=== PATIENT | male | born 1985 | race Caucasian/White ===

== ENCOUNTER 2018-04-14 19:28 | Emergency (ER) | payer SELFPAY ==
--- NOTE | 2018-04-14 21:44 | RADIOLOGY REPORT (SQ) ---
EXAM DESCRIPTION: XR CHEST 2 VIEWS COMPLETED DATE/TME: 04/14/2018 20:43 CLINICAL HISTORY: 32 years, Male, cough x3 weeks COMPARISON: X-ray chest 10/14/2015 NUMBER OF VIEWS: TECHNIQUE: LIMITATIONS: None. FINDINGS: No evidence of pulmonary infiltrate or pleural effusion. The heart and mediastinum are unremarkable. Pulmonary vascularity appears normal. There is a right-sided AICD. IMPRESSION: No acute finding. copyright 2010 [employer]- All Rights Reserved
[2018-04-14] MEDS ORDERED: GUAIFENESIN 600 MG TABLET.SA PO ONE (23:00)
[2018-04-14] MEDS ORDERED: SULFAMETHOXAZOLE/TRIMETHOPRIM 800-160 MG TABLET PO ONE (23:01)
[2018-04-14] MEDS ORDERED: CEPHALEXIN 500 MG CAPSULE PO ONE (23:01)
--- NOTE | 2018-04-14 23:05 | ER Document Report ---
HPI - HPI Time Seen by Provider: 04/14/18 20:20 Pain Level: 4 Notes: Patient is a 32-year-old male who presents with multiple complaints today. Patient reports productive cough ongoing for at least 3 weeks now. Patient also reports possible abscess to his left axilla. Patient has never had an abscess in the past and is very nervous about the thought of having it opened. Patient denies any fevers. Patient reports past medical history of HIV, CHF and myocardial infarction. - RESPIRATORY Respiratory: REPORTS: Coughing - 3 1/2 wks - REPRODUCTIVE Reproductive: DENIES: : Past Medical History - General Information source: Patient - Social History Smoking Status: Current Every Day Smoker Chew tobacco use (# tins/day): No Frequency of alcohol use: None Drug Abuse: None Family History: Reviewed & Not Pertinent Patient has suicidal ideation: No Patient has homicidal ideation: No - Past Medical History Cardiac Medical History: Reports: Hx Congestive Heart Failure, Hx Heart Attack - August 2012, Hx Hypertension Pulmonary Medical History: Reports: Hx COPD Renal/ Medical History: Denies: Hx Peritoneal Dialysis Psychiatric Medical History: Reports: Hx Bipolar Disorder Infectious Medical History: Reports: Hx HIV Past Surgical History: Reports: Hx Cardiac Catheterization - August 2012 w/stent, Hx Cardiac Surgery - stent, Hx Coronary Stent, Hx Internal Defibrillator - Immunizations Hx Diphtheria, Pertussis, Tetanus Vaccination: Yes Vertical Provider Document - CONSTITUTIONAL Notes: PHYSICAL EXAMINATION: GENERAL: Well-appearing, well-nourished and in no acute distress. HEAD: Atraumatic, normocephalic. EYES: Pupils equal round extraocular movements intact, conjunctiva are normal. ENT: Nares patent NECK: Normal range of motion LUNGS: No respiratory distress, bronchospasm with deep breaths. Musculoskeletal: Normal range of motion NEUROLOGICAL: Normal speech, normal gait. PSYCH: Normal mood, normal affect. SKIN: Warm, Dry, normal turgor, no rashes or lesions noted. Area of induration with fluctuance under patient's left axilla, tender with palpation. - INFECTION CONTROL TRAVEL OUTSIDE OF THE [place] IN LAST 30 DAYS: No Course - Re-evaluation Re-evalutation: Abscess was incised and drained, see procedure note. Patient tolerated well. Large amount of purulent drainage obtained. A chest x-ray was performed as patient has had a history of cough over the last 3 weeks and has a history of both HIV and CHF. Chest x-ray was clear with no acute findings today. Patient instructed to take grzm-[id number] cough medicine. Patient's vital signs remained stable and will be discharged home in stable condition. - Vital Signs Vital signs: Temp Pulse Resp BP Pulse Ox 98.7 F 108 H 18 137/98 H 96 04/14/18 19:45 04/14/18 19:45 04/14/18 19:45 04/14/18 19:45 04/14/18 19:45 Procedures - Incision and Drainage Left axilla Type: Simple Anesthetic type: 1% Lidocaine Blade size: 11 I&D procedure: Betadine prep applied, Shurclens applied Incision Method: Incision made by scalpel Discharge - Discharge Clinical Impression: Abscess, Cough Condition: Stable Disposition: HOME, SELF-CARE Additional Instructions: ABSCESS: You have an abscess (boil). This a pus-forming infection, usually due to staph. Some boils may be left to drain on their own, but most require lancing. From the time the tender lump first appears, it may be three or four days before the abscess is ready to donnell. Local heat and rest help at this stage of treatment. An antibiotic may prevent spread of the infection. Once the abscess is opened, packing may be placed into it. This is done so pus is not sealed inside by premature closure of the cavity. The packing will be removed at your follow-up visit or you may be advised to remove it yourself at home. Sometimes this packing must be replaced a few times during healing. The wound will heal with surprisingly little scar. Depending on the size and location of an abscess, healing can take one to four weeks. You may shower and wash the area around the incision site two or three times a day. Antibiotics may be prescribed, but are usually not necessary after an abscess has been drained. If you develop fever, chills, worsening pain, or increasing swelling in the area, call the doctor or return immediately. POST INCISION AND DRAINAGE: You have had an incision made to allow drainage of an abscess. The incision must remain open so that pus and debris can drain from the wound. If the abscess cavity is large, packing is placed. This keeps the tissues from collapsing and trapping pus inside, while the body shrinks the cavity. The packing may need to be replaced every day or two. The physician will instruct you on the packing. Keep a bulky dressing over the area. Replace it if it becomes saturated with blood or pus. Do not disturb the packing (if present). You may shower and cleanse the area with gentle soap and warm water two or three times a day. Local warmth may be soothing, and may promote faster healing. Return if you develop high fever or chills, or if you note spreading redness, increasing swelling, or increasing tenderness. MRSA CELLULITIS: You have an infection of your skin and underlying soft tissues called cellulitis. This is due to bacteria, which can enter through any break in the skin, or even through an irritated hair follicle. Untreated, cellulitis will usually worsen and may form an abscess which requires draining. Although many bacterial organisms can cause cellulitis and abscess formati ons, the most likely bacteria is Methicillin-Resistant Staph Aureus, or MRSA for short. Antibiotics are required. Usually, warm packs or warm soaks, and elevation of the infected area are recommended. You should start getting better within 24 to 36 hours. Most infections respond quickly to the right medication. Follow-up care is important, however, to check for abscess (boil) formation, unsuspected foreign body, or resistant infection. If you develop fever, chills, or if the area of infection is becoming rapidly more swollen or painful, call the doctor at once. CEPHALEXIN: The antibiotic you've been prescribed is a member of the cephalosporin class. This type of antibiotic covers a wide variety of infections, including those of the skin, lungs, and urinary tract. It's useful for staph infections. This antibiotic is slightly similar to the penicillin family. In rare cases, a person who is allergic to penicillin will also be allergic to this medication. If you have had a severe allergic reaction to penicillin, and have not taken this antibiotic since that time, notify your doctor. Antibiotics which cover many germs ("broad spectrum" antibiotics) are more likely to cause diarrhea or "yeast" infections. Women prone to vaginal yeast problems may suffer an attack after taking this antibiotic. In infants, oral thrush (white spots "stuck" on the cheek) or yeast diaper rash may result. See your doctor if these problems occur. Call at once if you develop itching, hives, shortness of breath, or lightheadedness. TRIMETHOPRIM-SULFA: You have been given a prescription for trimethoprim-sulfa (TMS, Septra, Bactrim). This is a combination antibiotic of the sulfa class, often used for urinary tract infections, middle ear infections, bronchitis, shigella intestinal infection, and Pneumocystis pneumonia. TMS is usually well-tolerated. Occasional side effects include nausea and decreased appetite. Septra is not recommended for infants less than two months of age. Do not take this medication if you have experienced severe side effects or allergy to sulfa medicine. You should stop this medicine at once and contact your physician if you develop any rash, joint pain, shortness of breath, bruising, or jaundice (yellow color in the skin), or if you develop any other new or unusual symptoms. FOLLOW-UP CARE: Most simple abscesses will not require a follow up visit. If you had packing placed in the abscess, remove it as instructed by the physician. If you have been referred to a physician for follow-up care, call the physicians office for an appointment as you were instructed or within the next two days. If you experience worsening or a significant change in your symptoms, return to the Emergency Department at any time for re-evaluation. Prescriptions: Benzonatate [Tessalon Perles 100 mg Capsule] 100 mg PO Q8HP PRN #40 capsule PRN Reason: Cephalexin [Cephalexin 500 MG Tablet] 1 tab PO QID #28 tablet Sulfamethoxazole/Trimethoprim [Bactrim Ds Tablet] 1 tab PO BID #14 tablet
[2018-04-15 00:08] VITALS: BP 143/102
== END 2018-04-14 23:15 | disposition home or self-care (01) ==
LOC: ER 19:28
DX: L02.412 Cutaneous abscess of left axilla (principal); R05 Cough; F17.200 Nicotine dependence, unspecified, uncomplicated; B20 Human immunodeficiency virus [HIV] disease; I50.9 Heart failure, unspecified; I11.0 Hypertensive heart disease with heart failure; I25.2 Old myocardial infarction; Z95.810 Presence of automatic (implantable) cardiac defibrillator
CPT/HCPCS: 71046; 99283

== ENCOUNTER 2019-01-29 22:17 | Emergency (ER) | payer SELFPAY ==
[2019-01-29 22:54] LABS: ABSOLUTE EOSINOPHILS # (AUTO) 0.3 10^3/uL (0.0-0.6); ABSOLUTE LYMPHOCYTES (AUTO) 3.3 10^3/uL (0.5-4.7); ABSOLUTE MONOCYTES (AUTO) 1.2 10^3/uL (0.1-1.4); BASOPHILS % (AUTO) 0.3 % (0-2); HEMATOCRIT 44.5 % (37.9-51.0); LYMPHOCYTES % (AUTO) 22.3 % (13-45); MEAN CORPUSCULAR HEMOGLOBIN 29.8 pg (27.0-33.4); MEAN CORPUSCULAR HGB CONC 33.8 g/dL (32.0-36.0); MEAN CORPUSCULAR VOLUME 88 fl (80-97); MONOCYTES % (AUTO) 8.1 % (3-13); PLATELET COUNT 237 10^3/uL (150-450); RED BLOOD COUNT 5.04 10^6/uL (4.35-5.55); SEGMENTED NEUTROPHILS % (AUTO) 67.3 % (42-78); TOTAL CELLS COUNTED % (AUTO) 100 %; WHITE BLOOD COUNT 14.9 10^3/uL (4.0-10.5)
[2019-01-29 23:11] LABS: PROTHROMBIN TIME 13.2 SEC (11.4-15.4)
[2019-01-29 23:12] LABS: ALKALINE PHOSPHATASE 87 U/L (38-126); ANION GAP 11 (5-19); ASPARTATE AMINO TRANSFERASE 24 U/L (17-59); BILIRUBIN,DIRECT 0.2 mg/dL (0.0-0.4); BILIRUBIN,TOTAL 0.4 mg/dL (0.2-1.3); BLOOD UREA NITROGEN 10 mg/dL (7-20); CALCIUM 9.3 mg/dL (8.4-10.2); CARBON DIOXIDE 25 mmol/L (22-30); CHLORIDE 101 mmol/L (98-107); CREATINE KINASE 93 U/L (55-170); GLUCOSE 106 mg/dL (75-110); POTASSIUM 3.9 mmol/L (3.6-5.0); TOTAL PROTEIN 7.2 g/dL (6.3-8.2)
--- NOTE | 2019-01-29 23:55 | ER Document Report ---
ED Cardiac - General Chief Complaint: Chest Pain Stated Complaint: DEFIBRILATOR DISCHARGE Time Seen by Provider: 01/29/19 23:14 Primary Care Provider: GALO SIMPSON NP [Primary Care Provider] - Follow up as needed Notes: Patient is a 33-year-old male who came in this evening after his defibrillator discharged around 9:00. Patient states that he was watching movies, felt like he was getting dizzy and might pass out and then was shocked. Patient denies any symptoms prior to this although he thinks he has had a cold recently. No [id number]-[id number] medications. Patient was started on Lasix over the last 2 weeks and has been on potassium replacement as well. Denies any other symptoms earlier today. No near syncope, chest pain, trouble breathing. Feels well now except for his chest being sore. TRAVEL OUTSIDE OF THE [place] IN LAST 30 DAYS: No - HPI Patient complains to provider of: Chest pain Chest pain radiation location: Left jaw Severity now: Mild - Related Data Allergies/Adverse Reactions: No Known Allergies Allergy (Verified 05/16/14 12:15) Past Medical History - Social History Smoking Status: Current Every Day Smoker Family History: Reviewed & Not Pertinent Patient has suicidal ideation: No Patient has homicidal ideation: No - Past Medical History Cardiac Medical History: Reports: Hx Congestive Heart Failure, Hx Heart Attack - August 2012, Hx Hypertension Pulmonary Medical History: Reports: Hx COPD Renal/ Medical History: Denies: Hx Peritoneal Dialysis Psychiatric Medical History: Reports: Hx Bipolar Disorder Infectious Medical History: Reports: Hx HIV Past Surgical History: Reports: Hx Cardiac Catheterization - August 2012 w/stent, Hx Cardiac Surgery - stent, Hx Coronary Stent, Hx Internal Defibrillator - Immunizations Hx Diphtheria, Pertussis, Tetanus Vaccination: Yes Review of Systems - Review of Systems Constitutional: No symptoms reported EENT: No symptoms reported Cardiovascular: See HPI Respiratory: No symptoms reported Gastrointestinal: No symptoms reported Genitourinary: No symptoms reported Male Genitourinary: No symptoms reported Musculoskeletal: No symptoms reported Skin: No symptoms reported Hematologic/Lymphatic: No symptoms reported Neurological/Psychological: No symptoms reported Physical Exam - Vital signs Vitals: Resp 9 L 01/29/19 22:27 Interpretation: Normal - General General appearance: Appears well, Alert - HEENT Head: Normocephalic, Atraumatic Eyes: Normal Pupils: PERRL - Respiratory Respiratory status: No respiratory distress Chest status: Nontender Breath sounds: Normal Chest palpation: Normal - Cardiovascular Rhythm: Regular Heart sounds: Normal auscultation Murmur: No - Abdominal Inspection: Normal Distension: No distension Bowel sounds: Normal Tenderness: Nontender Organomegaly: No organomegaly - Back Back: Normal, Nontender - Extremities General upper extremity: Normal inspection, Nontender, Normal color, Normal ROM, Normal temperature General lower extremity: Normal inspection, Nontender, Normal color, Normal ROM, Normal temperature, Normal weight bearing. No: Apolinar's sign - Neurological Neuro grossly intact: Yes Cognition: Normal Orientation: AAOx4 Nicky Coma Scale Eye Opening: Spontaneous Nicky Coma Scale Verbal: Oriented [place] Coma Scale Motor: Obeys Commands Nicky Coma Scale Total: 15 Speech: Normal Motor strength normal: LUE, RUE, LLE, RLE Sensory: Normal - Psychological Associated symptoms: Normal affect, Normal mood - Skin Skin Temperature: Warm Skin Moisture: Dry Skin Color: Normal Course - Re-evaluation Re-evalutation: 01/30/19 02:28 Patient is a 33-year-old male with a history of pacemaker defibrillator, CHF, coronary artery disease, who presents after his defibrillator discharged at 2118 this evening. Patient states that he is not been defibrillated before. Had a pacemaker check within the last 6 months and that was within normal limits. Patient has a concerning story. [employer] pacemaker/defibrillator interrogated. Spoke with rep who confirms that the pacemaker did indeed deliver a 31 J shock at the time the patient said. This was for ventricular tachycardia with a rated by 290. He does not feel like this was A. fib or a flutter. Patient was discussed with ALYSA Augustine at [facility]. He will accept the patient for transfer for Dr. Pelletier. Discussed with patient who is agreeable to this plan. Blood work is benign appearing. Stable at the time of transfer. Care transition to Dr. Donovan awaiting patient transport. - Vital Signs Vital signs: Temp Pulse Resp BP Pulse Ox 16 120/81 98 01/30/19 00:05 01/29/19 23:01 01/30/19 00:05 - Laboratory Result Diagrams: 01/29/19 21:50 01/29/19 21:50 Laboratory results interpreted by me: 01/29/19 01/29/19 01/30/19 21:50 21:50 00:13 WBC 14.9 H Absolute Neuts (auto) 10.0 H Sodium 136.8 L Ur Leukocyte Esterase TRACE H Critical Care Note - Critical Care Note Total time excluding time spent on procedures (mins): 35 - Evaluation and management of patient with defibrillator that discharge, interrogation of pacemaker defibrillator, coordination of transfer, counseling of patient, multiple evaluations Discharge - Discharge Clinical Impression: Defibrillator discharge, Ventricular tachycardia Condition: Stable Disposition: [facility] Referrals: GALO SIMPSON NP [Primary Care Provider] - Follow up as needed
--- NOTE | 2019-01-30 00:29 | RADIOLOGY REPORT (SQ) ---
EXAM DESCRIPTION: XR CHEST 2 VIEWS COMPLETED DATE/TME: 01/29/2019 23:45 CLINICAL HISTORY: 33 years, Male, near syncope COMPARISON: 04/14/2018 NUMBER OF VIEWS: Two TECHNIQUE: Two views of the chest LIMITATIONS: None. FINDINGS: Lungs are clear. The heart is normal in size with a right chest wall AICD in place. There is no pneumothorax or pleural effusion. A healing fracture of the left ninth rib is noted.. IMPRESSION: No acute cardiopulmonary abnormality copyright 2010 [employer]- All Rights Reserved
[2019-01-30 00:50] LABS: APPEARANCE,URINE CLEAR; BILIRUBIN,URINE NEGATIVE (NEGATIVE); COLOR,URINE YELLOW; GLUCOSE, URINE NEGATIVE (NEGATIVE); KETONES,URINE NEGATIVE (NEGATIVE); LEUKOCYTE ESTERASE,URINE TRACE (NEGATIVE); NITRITE,URINE NEGATIVE (NEGATIVE); PROTEIN,URINE NEGATIVE (NEGATIVE); URINE SPECIFIC GRAVITY 1.014; UROBILINOGEN,URINE NEGATIVE mg/dL (<2.0)
[2019-01-30 01:05] LABS: URINE AMPHETAMINES SCREEN NEGATIVE; URINE BARBITURATES SCREEN NEGATIVE; URINE BENZODIAZEPINES SCREEN NEGATIVE; URINE COCAINE SCREEN NEGATIVE; URINE MARIJUANA (THC) SCREEN NEGATIVE; URINE METHADONE SCREEN NEGATIVE; URINE PHENCYCLIDINE SCREEN NEGATIVE
[2019-01-30] MEDS ORDERED: ACETAMINOPHEN 325 MG TABLET PO ONE (05:12)
--- NOTE | 2019-01-30 07:47 | EKG REPORT ---
SEVERITY:- ABNORMAL ECG - SINUS TACHYCARDIA PROBABLE LEFT ATRIAL ABNORMALITY CONSIDER ANTERIOR INFARCT ,OLD NONSPECIFIC T ABNORMALITIES, LATERAL LEADS : Confirmed by: Santiago Johnson MD 30-Jan-2019 07:46:33
--- NOTE | 2019-01-30 07:49 | ER Document Report ---
Doctor's Note Notes: 01/30/19 07:47 Transport is here to take the patient [facility]. At this time he is in a sinus rhythm, vital signs stable, patient feels well.
[2019-01-30 07:50] VITALS: BP 130/84
== END 2019-01-30 07:51 | disposition short-term general hospital (02) ==
LOC: ER 22:17
DX: I47.2 Ventricular tachycardia (principal); Z95.810 Presence of automatic (implantable) cardiac defibrillator; I11.0 Hypertensive heart disease with heart failure; I50.9 Heart failure, unspecified; I25.10 Atherosclerotic heart disease of native coronary artery without angina pectoris; R42 Dizziness and giddiness; R07.9 Chest pain, unspecified; I25.2 Old myocardial infarction; J44.9 Chronic obstructive pulmonary disease, unspecified; F17.200 Nicotine dependence, unspecified, uncomplicated; Z79.899 Other long term (current) drug therapy; Z95.5 Presence of coronary angioplasty implant and graft
CPT/HCPCS: 36415; 71046; 80053; 80307; 81001; 82550; 82553; 83735; 84484; 85025; 85610; 93005; 93010; 99291

== ENCOUNTER 2019-02-07 22:59 | Emergency (ER) | payer SELFPAY ==
--- NOTE | 2019-02-07 23:52 | ER Document Report ---
ED General - General Chief Complaint: Arrhythmia Stated Complaint: DEFIBRILLATOR DISCHARGE Time Seen by Provider: 02/07/19 23:52 TRAVEL OUTSIDE OF THE [place] IN LAST 30 DAYS: No - HPI Notes: Patient presents complaining that his defibrillator fired earlier tonight. Patient states he had a similar episode last week. Patient states he was transferred to [facility] and they started him on Benicar and discharged him telling him that his AICD was functioning properly. Patient has a history of congestive heart failure, CA, hypertension COPD and HIV. - Related Data Allergies/Adverse Reactions: No Known Allergies Allergy (Verified 05/16/14 12:15) Past Medical History - General Information source: Patient - Social History Smoking Status: Current Every Day Smoker Family History: Reviewed & Not Pertinent - Past Medical History Cardiac Medical History: Reports: Hx Congestive Heart Failure, Hx Heart Attack - August 2012, Hx Hypertension Pulmonary Medical History: Reports: Hx COPD Renal/ Medical History: Denies: Hx Peritoneal Dialysis Psychiatric Medical History: Reports: Hx Bipolar Disorder Infectious Medical History: Reports: Hx HIV Past Surgical History: Reports: Hx Cardiac Catheterization - August 2012 w/stent, Hx Cardiac Surgery - stent, Hx Coronary Stent, Hx Internal Defibrillator - Immunizations Hx Diphtheria, Pertussis, Tetanus Vaccination: Yes Review of Systems - Review of Systems Constitutional: No symptoms reported EENT: No symptoms reported Cardiovascular: See HPI Respiratory: Cough Gastrointestinal: No symptoms reported Genitourinary: No symptoms reported Male Genitourinary: No symptoms reported Musculoskeletal: No symptoms reported Skin: No symptoms reported Hematologic/Lymphatic: No symptoms reported Neurological/Psychological: No symptoms reported -: Yes All other systems reviewed and negative Physical Exam - Notes Notes: PHYSICAL EXAMINATION: GENERAL: Well-appearing, well-nourished and in no acute distress. HEAD: Atraumatic, normocephalic. EYES: Pupils equal round and reactive to light, extraocular movements intact, sclera anicteric, conjunctiva are normal. ENT: nares patent, oropharynx clear without exudates. Moist mucous membranes. NECK: Normal range of motion, supple without lymphadenopathy LUNGS: Breath sounds clear to auscultation bilaterally and equal. No wheezes rales or rhonchi. HEART: Regular rate and rhythm without murmurs ABDOMEN: Soft, nontender, normoactive bowel sounds. No guarding, no rebound. No masses appreciated. EXTREMITIES: Normal range of motion, no pitting or edema. No cyanosis. NEUROLOGICAL: No focal neurological deficits. Moves all extremities spontaneously and on command. PSYCH: Normal mood, normal affect. SKIN: Warm, Dry, normal turgor, no rashes or lesions noted. Course - Re-evaluation Re-evalutation: 02/08/19 Findings of interrogation discussed with patient. Interrogation shows patient did not receive one shock from his defibrillator after ATP x3. Inform patient that it is recommended that he be transferred back to [facility] for further evaluation and treatment of his recurrent V. tach and subsequent defibrillator discharge. Patient stated he needed a few minutes to think about whether or not he was willing to be transported back down to [facility]. Risks of leaving AMA including but not limited to permanent disability and/or discussed with patient patient states he understands risks as they have been explained to him and would like a few minutes to "think about it" - Laboratory Result Diagrams: 02/07/19 23:39 02/07/19 23:39 Laboratory results interpreted by me: 02/07/19 02/07/19 02/07/19 23:39 23:39 23:39 WBC 13.8 H Absolute Neuts (auto) 8.5 H Sodium 136.2 L NT-Pro-B Natriuret Pep 263 H Laboratory results are reviewed by this MD. - Diagnostic Test Radiology reviewed: Reports reviewed - EKG Interpretation by Me Additional EKG results interpreted by me: 02/08/19 01:27 EKG performed at 2320 hrs. on 02/07/2019 was interpreted by this MD. Impression: Sinus rhythm, rate 94, narrow QRS complex, nonspecific ST segments. Morphology is grossly similar in comparison to EKG done on 01/29/2019. Discharge - Discharge Clinical Impression: Defibrillator discharge, H/O ventricular tachycardia Condition: Serious Disposition: AGAINST MEDICAL ADVICE Additional Instructions: Return to the Emergency Department by calling 911 without delay if any worse or if you decide to seek further treatment.
[2019-02-08 00:45] LABS: ABSOLUTE BASOPHILS # (AUTO) 0.1 10^3/uL (0.0-0.2); ABSOLUTE EOSINOPHILS # (AUTO) 0.3 10^3/uL (0.0-0.6); ABSOLUTE LYMPHOCYTES (AUTO) 3.9 10^3/uL (0.5-4.7); ABSOLUTE NEUT (AUTO) 8.5 10^3/uL (1.7-8.2); BASOPHILS % (AUTO) 0.8 % (0-2); EOSINOPHILS % (AUTO) 1.9 % (0-6); HEMATOCRIT 47.2 % (37.9-51.0); HEMOGLOBIN 15.8 g/dL (13.5-17.0); LYMPHOCYTES % (AUTO) 28.3 % (13-45); MEAN CORPUSCULAR HEMOGLOBIN 29.7 pg (27.0-33.4); MEAN CORPUSCULAR HGB CONC 33.6 g/dL (32.0-36.0); MEAN CORPUSCULAR VOLUME 88 fl (80-97); MONOCYTES % (AUTO) 7.4 % (3-13); PLATELET COUNT 298 10^3/uL (150-450); RED BLOOD COUNT 5.34 10^6/uL (4.35-5.55); RED CELL DISTRIBUTION WIDTH 13.6 % (11.5-14.0); SEGMENTED NEUTROPHILS % (AUTO) 61.6 % (42-78); TOTAL CELLS COUNTED % (AUTO) 100 %; WHITE BLOOD COUNT 13.8 10^3/uL (4.0-10.5)
[2019-02-08 00:59] LABS: ALKALINE PHOSPHATASE 95 U/L (38-126); ANION GAP 10 (5-19); ASPARTATE AMINO TRANSFERASE 26 U/L (17-59); BILIRUBIN,DIRECT 0.2 mg/dL (0.0-0.4); BILIRUBIN,TOTAL 0.4 mg/dL (0.2-1.3); BLOOD UREA NITROGEN 13 mg/dL (7-20); CALCIUM 9.9 mg/dL (8.4-10.2); CARBON DIOXIDE 26 mmol/L (22-30); CHLORIDE 100 mmol/L (98-107); GLUCOSE 96 mg/dL (75-110); POTASSIUM 4.7 mmol/L (3.6-5.0); TOTAL PROTEIN 7.1 g/dL (6.3-8.2)
--- NOTE | 2019-02-08 01:07 | RADIOLOGY REPORT (SQ) ---
CLINICAL HISTORY: cough, noncompliant with lasix COMPARISON: 01/30/2019. TECHNIQUE: XR CHEST 1 VIEW 02/08/2019 12:12 AM CDT FINDINGS: The heart is mildly enlarged. Right PICC is unchanged. Lungs are clear without consolidation, atelectasis, mass or edema. There is no pleural effusion. There is no pneumothorax. There are no acute osseous findings. IMPRESSION: Clear lungs.
[2019-02-08 01:12] LABS: TROPONIN I 0.021 ng/mL
[2019-02-08 02:15] VITALS: BP 119/80
--- NOTE | 2019-02-09 00:31 | EKG REPORT ---
SEVERITY:- ABNORMAL ECG - SINUS RHYTHM BORDERLINE R WAVE PROGRESSION, ANTERIOR LEADS NONSPECIFIC T ABNORMALITIES, LATERAL LEADS : Confirmed by: Avinash Wells 09-Feb-2019 00:30:01
== END 2019-02-08 02:10 | disposition left against medical advice (07) ==
LOC: ER 22:59
DX: I47.2 Ventricular tachycardia (principal); Z45.02 Encounter for adjustment and management of automatic implantable cardiac defibrillator; I10 Essential (primary) hypertension; I25.2 Old myocardial infarction; J44.9 Chronic obstructive pulmonary disease, unspecified; F17.200 Nicotine dependence, unspecified, uncomplicated; R05 Cough; Z21 Asymptomatic human immunodeficiency virus [HIV] infection status; Z95.5 Presence of coronary angioplasty implant and graft
CPT/HCPCS: 36415; 71045; 80053; 83735; 83880; 84484; 85025; 93005; 93010; 99284

== ENCOUNTER 2019-02-24 20:58 | Emergency (ER) | payer SELFPAY ==
--- NOTE | 2019-02-24 21:27 | ER Document Report ---
ED Medical Screen (RME) - General Chief Complaint: Chest Pain Stated Complaint: HEART RACING/CHEST PAIN Time Seen by Provider: 02/24/19 21:19 Mode of Arrival: Ambulatory Information source: Patient Notes: 33-year-old male presented to ED for complaint of chest pain the last 2 hours. He does have a history of CHF with an ejection fraction of 20 to 25% he states he has had V. tach 2 times in the last month. He does take Lasix and potassium for CHF. He also has a history of HIV CT, coronary stents, cardiac cath, ICD, and reflux. He already had 4 baby aspirin at the [facility]. He states his chest pain started at [facility] and they gave him 4 baby aspirin. States he smokes 1/2 pack a day does not drink or do any drugs. I have greeted and performed a rapid initial assessment of this patient. A comprehensive ED assessment and evaluation of the patient, analysis of test results and completion of medical decision making process will be conducted by an additional ED providers. TRAVEL OUTSIDE OF THE [place] IN LAST 30 DAYS: No - Related Data Allergies/Adverse Reactions: No Known Allergies Allergy (Verified 05/16/14 12:15) Past Medical History - Past Medical History Cardiac Medical History: Reports: Hx Congestive Heart Failure, Hx Heart Attack - August 2012, Hx Hypertension Pulmonary Medical History: Reports: Hx COPD Renal/ Medical History: Denies: Hx Peritoneal Dialysis Psychiatric Medical History: Reports: Hx Bipolar Disorder Infectious Medical History: Reports: Hx HIV Past Surgical History: Reports: Hx Cardiac Catheterization - August 2012 w/stent, Hx Cardiac Surgery - stent, Hx Coronary Stent, Hx Internal Defibrillator - Immunizations Hx Diphtheria, Pertussis, Tetanus Vaccination: Yes Physical Exam - Vital signs Vitals: Temp Pulse Resp BP Pulse Ox 98.0 F 104 H 16 123/85 97 02/24/19 21:14 02/24/19 21:14 02/24/19 21:14 02/24/19 21:14 02/24/19 21:14 Course - Vital Signs Vital signs: Temp Pulse Resp BP Pulse Ox 98.0 F 104 H 16 123/85 97 02/24/19 21:14 02/24/19 21:14 02/24/19 21:14 02/24/19 21:14 02/24/19 21:14
[2019-02-24 22:02] LABS: APPEARANCE,URINE CLEAR; BILIRUBIN,URINE NEGATIVE (NEGATIVE); COLOR,URINE COLORLESS; GLUCOSE, URINE NEGATIVE (NEGATIVE); KETONES,URINE NEGATIVE (NEGATIVE); PROTEIN,URINE NEGATIVE (NEGATIVE); URINE SPECIFIC GRAVITY 1.002; UROBILINOGEN,URINE NEGATIVE mg/dL (<2.0)
[2019-02-24 22:03] LABS: ABSOLUTE BASOPHILS # (AUTO) 0.1 10^3/uL (0.0-0.2); ABSOLUTE EOSINOPHILS # (AUTO) 0.4 10^3/uL (0.0-0.6); ABSOLUTE LYMPHOCYTES (AUTO) 3.8 10^3/uL (0.5-4.7); ABSOLUTE MONOCYTES (AUTO) 0.9 10^3/uL (0.1-1.4); ABSOLUTE NEUT (AUTO) 5.3 10^3/uL (1.7-8.2); BASOPHILS % (AUTO) 1.3 % (0-2); EOSINOPHILS % (AUTO) 3.8 % (0-6); HEMATOCRIT 45.4 % (37.9-51.0); HEMOGLOBIN 15.7 g/dL (13.5-17.0); LYMPHOCYTES % (AUTO) 36.1 % (13-45); MEAN CORPUSCULAR HEMOGLOBIN 30.8 pg (27.0-33.4); MEAN CORPUSCULAR HGB CONC 34.5 g/dL (32.0-36.0); MEAN CORPUSCULAR VOLUME 89 fl (80-97); MONOCYTES % (AUTO) 8.7 % (3-13); PLATELET COUNT 237 10^3/uL (150-450); RED BLOOD COUNT 5.09 10^6/uL (4.35-5.55); RED CELL DISTRIBUTION WIDTH 14.3 % (11.5-14.0); SEGMENTED NEUTROPHILS % (AUTO) 50.1 % (42-78); TOTAL CELLS COUNTED % (AUTO) 100 %; WHITE BLOOD COUNT 10.5 10^3/uL (4.0-10.5)
[2019-02-24 22:18] LABS: ALBUMIN 4.1 g/dL (3.5-5.0); ALKALINE PHOSPHATASE 81 U/L (38-126); ANION GAP 11 (5-19); ASPARTATE AMINO TRANSFERASE 28 U/L (17-59); BILIRUBIN,DIRECT 0.2 mg/dL (0.0-0.4); BILIRUBIN,TOTAL 0.4 mg/dL (0.2-1.3); BLOOD UREA NITROGEN 15 mg/dL (7-20); CALCIUM 9.5 mg/dL (8.4-10.2); CARBON DIOXIDE 23 mmol/L (22-30); CHLORIDE 106 mmol/L (98-107); GLUCOSE 99 mg/dL (75-110); POTASSIUM 4.4 mmol/L (3.6-5.0); TOTAL PROTEIN 7.1 g/dL (6.3-8.2)
--- NOTE | 2019-02-24 22:29 | RADIOLOGY REPORT (SQ) ---
XR CHEST 2 VIEWS EXAM DATE: 02/24/2019 9:24 PM [employer] HISTORY: Chest pain. COMPARISON: 02/08/2019 FINDINGS: The heart size is mildly enlarged. No consolidation, pleural effusion, or pneumothorax is seen. No acute bony findings. Stable right chest wall single lead pacemaker. IMPRESSION: No acute cardiopulmonary disease.
[2019-02-24 22:30] LABS: CREATINE KINASE MB 1.03 ng/mL (<4.55); TROPONIN I 0.013 ng/mL
--- NOTE | 2019-02-25 00:20 | ER Document Report ---
ED Cardiac - General Chief Complaint: Chest Pain Stated Complaint: HEART RACING/CHEST PAIN Time Seen by Provider: 02/24/19 21:19 Mode of Arrival: Ambulatory Notes: Mr. Pinzon is a 33 yo M w/ PMH HIV on PERKINS, CAD with stent in place at the age of 27 and [employer] A[employer] presenting to the ED for chest pain. Patient states that he had just entered [facility], was walking around when he developed chest pain centrally located sharp nonradiating. He also endorsed some palpitations at that point in time. No difficulty breathing or dyspnea with significant exertion that he is noticed over the past week. He states that earlier this evening, he had [place] food which was quite spicy, steak and chorizo. Patient denies any lower extremity edema, fevers or chills, or any other complaints. He states that he was given 4 baby aspirins by the pharmacist that [facility]. Viral load per patient is undetectable. Note, patient states that he still smokes half a pack a day however he used to previously smoke as high as 1.5 packs/day. He is been smoking for the past 16 years. He denies any use of other illicit substances such as cocaine. TRAVEL OUTSIDE OF THE [place] IN LAST 30 DAYS: No - Related Data Allergies/Adverse Reactions: No Known Allergies Allergy (Verified 05/16/14 12:15) Past Medical History - General Information source: Patient - Social History Smoking Status: Current Every Day Smoker Family History: Reviewed & Not Pertinent Patient has suicidal ideation: No Patient has homicidal ideation: No - Past Medical History Cardiac Medical History: Reports: Hx Congestive Heart Failure, Hx Heart Attack - August 2012, Hx Hypertension Pulmonary Medical History: Reports: Hx COPD Renal/ Medical History: Denies: Hx Peritoneal Dialysis Psychiatric Medical History: Reports: Hx Bipolar Disorder Infectious Medical History: Reports: Hx HIV Past Surgical History: Reports: Hx Cardiac Catheterization - August 2012 w/stent, Hx Cardiac Surgery - stent, Hx Coronary Stent, Hx Internal Defibrillator - Immunizations Hx Diphtheria, Pertussis, Tetanus Vaccination: Yes Review of Systems - Review of Systems Constitutional: See HPI EENT: No symptoms reported Cardiovascular: See HPI Respiratory: No symptoms reported Gastrointestinal: No symptoms reported Genitourinary: No symptoms reported Male Genitourinary: No symptoms reported Musculoskeletal: No symptoms reported Skin: No symptoms reported Hematologic/Lymphatic: No symptoms reported Neurological/Psychological: No symptoms reported Physical Exam - Vital signs Vitals: Temp Pulse Resp BP Pulse Ox 98.0 F 104 H 16 123/85 97 02/24/19 21:14 02/24/19 21:14 02/24/19 21:14 02/24/19 21:14 02/24/19 21:14 Interpretation: Tachycardic - General General appearance: Appears well, Alert - HEENT Head: Normocephalic, Atraumatic Eyes: Normal Pupils: PERRL - Respiratory Respiratory status: No respiratory distress Chest status: Nontender Breath sounds: Normal Chest palpation: Normal - Cardiovascular Rhythm: Regular Heart sounds: Normal auscultation Murmur: No - Abdominal Inspection: Normal Distension: No distension Bowel sounds: Normal Tenderness: Nontender Organomegaly: No organomegaly - Back Back: Normal, Nontender - Extremities General upper extremity: Normal inspection, Nontender, Normal color, Normal ROM, Normal temperature General lower extremity: Normal inspection, Nontender, Normal color, Normal ROM, Normal temperature, Normal weight bearing. No: Apolinar's sign - Neurological Neuro grossly intact: Yes Cognition: Normal Orientation: AAOx4 Nicky Coma Scale Eye Opening: Spontaneous Nicky Coma Scale Verbal: Oriented [place] Coma Scale Motor: Obeys Commands Nicky Coma Scale Total: 15 Speech: Normal Motor strength normal: LUE, RUE, LLE, RLE Sensory: Normal - Psychological Associated symptoms: Normal affect, Normal mood - Skin Skin Temperature: Warm Skin Moisture: Dry Skin Color: Normal Course - Re-evaluation Re-evalutation: Patient is generally well-appearing and nontoxic. Initial vitals notable for mild tachycardia. However the patient states he just walked and when they were assessed. Upon my evaluation, the patient's vitals were completely within normal limits. EKG nonischemic. Given the patient's history of CAD at such a young age (27 years), plan to obtain 2 troponins. Patient amenable to this. In addition the patient likely has GERD as he did have spicy [place] food for dinner this evening. Will administer GI cocktail and reassess. 02/25/19 00:50 EKG nonischemic. CBC CMP within normal limits. Chest x-ray also unremarkable. Patient felt significantly improved after GI cocktail. 02/25/19 02:37 Troponin is negative. Patient given return precautions and instructed to follow-up with his primary care doctor as needed. - Vital Signs Vital signs: Temp Pulse Resp BP Pulse Ox 97.9 F 88 11 L 112/71 98 02/25/19 01:00 02/25/19 00:12 02/25/19 01:01 02/25/19 01:00 02/25/19 01:01 - Laboratory Result Diagrams: 02/24/19 21:30 02/24/19 21:30 Laboratory results interpreted by me: 02/24/19 02/24/19 02/24/19 21:30 21:30 21:30 RDW 14.3 H NT-Pro-B Natriuret Pep 185 H Leukocyte Esterase Rfl TRACE H - EKG Interpretation by Ms EKG shows normal: Sinus rhythm, Milo Rate: Tachycardia Rhythm: NSR Heart block present: 1st Degree When compared to previous EKG there are: No significant change - 02/07/19 Discharge - Discharge Clinical Impression: History of coronary artery disease, GERD (gastroesophageal reflux disease) Condition: Good Disposition: HOME, SELF-CARE Instructions: Prilosec (Acid Pump Inhibitor) ([facility]), Reflux Disease (GERD) ([facility]), Chest Pain of Unclear Cause ([facility])
[2019-02-25] MEDS ORDERED: MAG HYDROX/AL HYDROX/SIMETH SUSP 30 ML UDCUP PO ONE (00:49)
[2019-02-25] MEDS ORDERED: METOCLOPRAMIDE HCL ORAL SOLN 10 MG/10 ML UDCUP PO ONE (00:49)
[2019-02-25] MEDS ORDERED: LIDOCAINE 2% VISCOUS SOLN 20 ML UDCUP PO ONE (00:49)
[2019-02-25 02:51] VITALS: BP 94/65
--- NOTE | 2019-02-25 09:45 | EKG REPORT ---
SEVERITY:- ABNORMAL ECG - SINUS TACHYCARDIA CONSIDER ANTERIOR INFARCT NONSPECIFIC T ABNORMALITIES, INFERIOR LEADS : Confirmed by: Avinash Wells 25-Feb-2019 09:44:13
== END 2019-02-25 02:51 | disposition home or self-care (01) ==
LOC: ER 20:58
DX: K21.9 Gastro-esophageal reflux disease without esophagitis (principal); I25.10 Atherosclerotic heart disease of native coronary artery without angina pectoris; R07.9 Chest pain, unspecified; R00.2 Palpitations; J44.9 Chronic obstructive pulmonary disease, unspecified; I10 Essential (primary) hypertension; I25.2 Old myocardial infarction; Z95.5 Presence of coronary angioplasty implant and graft; I44.0 Atrioventricular block, first degree; R00.0 Tachycardia, unspecified; Z21 Asymptomatic human immunodeficiency virus [HIV] infection status; Z79.899 Other long term (current) drug therapy; F17.200 Nicotine dependence, unspecified, uncomplicated; Z95.810 Presence of automatic (implantable) cardiac defibrillator
CPT/HCPCS: 93005; 36415; 87086; 82553; 83735; 85025; 80053; 81001; 84484; 83880; 71046; 93010; J3490